=== PATIENT | male | born 1960 | race Caucasian/White ===

== ENCOUNTER → 2017-01-07 | Outpatient (CLI) | payer OTHER ==
[~2017-01-07] MED LIST: CEPH500C2 PO; CETI10TA84 PO; CIPR-255 PO; COEN1CAP28 PO; HYDR-5688 PO; IBUP-1050 PO; KETO2SHA TD; METR0.754 TD; SIMV20TA2 PO
[2017-01-07 17:46] LABS: HEMATOCRIT 49.4 % (42-52); MEAN CELL VOLUME 92.7 fL (80-100); MEAN CORPUSCULAR HEMOGLOBIN 31.7 pg (25-34); MEAN CORPUSCULAR HGB CONC 34.2 g/dl (32-36); MEAN PLATELET VOLUME 10.4 fL (7.4-10.4); PLATELET COUNT 189 K/uL (130-400); RED BLOOD COUNT 5.33 M/uL (4.7-6.1); WHITE BLOOD COUNT 7.06 K/uL (4.8-10.8)
[2017-01-07 18:09] LABS: BLOOD UREA NITROGEN 18 mg/dl (7-18); BUN/CREATININE RATIO 14.9 (10-20); CALCIUM 9.2 mg/dl (8.5-10.1); CARBON DIOXIDE 31 mmol/L (21-32); CHLORIDE 103 mmol/L (98-107); GLUCOSE 84 mg/dl (70-99); POTASSIUM 3.8 mmol/L (3.5-5.1); SODIUM 141 mmol/L (136-145)
[2017-01-07 18:13] LABS: PHOSPHORUS 2.9 mg/dl (2.5-4.9)
== END | disposition home or self-care (01) ==
LOC: C.LAB1850 16:53
PROVIDERS: ATTEND Dermatology
DX: N20.0 Calculus of kidney (principal); Z00.00 Encounter for general adult medical examination without abnormal findings; E55.9 Vitamin D deficiency, unspecified; R21 Rash and other nonspecific skin eruption

== ENCOUNTER → 2017-04-11 | Outpatient (CLI) | payer OTHER ==
--- NOTE | 2017-04-11 15:18 | DIAGNOSTIC IMAGING REPORT ---
KUB CLINICAL HISTORY: Nephrolithiasis. FINDINGS: An AP supine abdominal radiograph is compared to study dated 04/22/2016. A region of linear calcifications/stone fragments is again seen projecting over the lower pole of the left kidney an measures up to 2.6 cm. 2 additional nonobstructing left renal calculi are identified and measure up to 6 mm. No calcifications project over the right kidney or along the course of the ureters. Pelvic phleboliths are similar to previous. There is a nonobstructed abdominal bowel gas pattern noting moderate colonic fecal retention. The bony structures appear intact. IMPRESSION: Left-sided nephrolithiasis as above. This is similar to the 04/22/2016 examination. Electronically signed by: Jabari Thompson M.D. 04/11/2017 3:17 PM Dictated Date/Time: 04/11/2017 3:15 PM
== END | disposition home or self-care (01) ==
LOC: C.RAD 13:58
PROVIDERS: ATTEND Urology
DX: N20.0 Calculus of kidney (principal); Z11.59 Encounter for screening for other viral diseases

== ENCOUNTER → 2017-04-21 | Outpatient (CLI) | payer OTHER | END | disposition home or self-care (01) | LOC: C.LABBFT 12:46 | PROVIDERS: ATTEND Urology | DX: N40.1 Benign prostatic hyperplasia with lower urinary tract symptoms (principal) ==

== ENCOUNTER → 2017-07-25 | Outpatient (CLI) | payer OTHER ==
[2017-07-25 16:59] LABS: ALT/SGPT 23 U/L (12-78); AST/SGOT 28 U/L (15-37); BLOOD UREA NITROGEN 17 mg/dl (7-18); BUN/CREATININE RATIO 14.3 (10-20); CALCIUM 8.8 mg/dl (8.5-10.1); CARBON DIOXIDE 27 mmol/L (21-32); CHLORIDE 107 mmol/L (98-107); GLUCOSE 97 mg/dl (70-99); POTASSIUM 3.9 mmol/L (3.5-5.1); SODIUM 140 mmol/L (136-145)
[2017-07-25 17:02] LABS: ALKALINE PHOSPHATASE 91 U/L (45-117); CHOLESTEROL 194 mg/dl (0-200); CHOLESTEROL/HDL RATIO 3.3; HDL CHOLESTEROL 59 mg/dl; LDL CHOLESTEROL CALCULATED 113 mg/dl; TRIGLYCERIDES 112 mg/dl (0-150); VERY LOW DENSITY LIPOPROT CALC 22 mg/dl
== END | disposition home or self-care (01) ==
LOC: C.LABBFT 15:41
PROVIDERS: ATTEND Internal Medicine
DX: N20.0 Calculus of kidney (principal); E55.9 Vitamin D deficiency, unspecified

== ENCOUNTER → 2017-07-31 | Outpatient (CLI) | payer OTHER | END | disposition home or self-care (01) | LOC: C.LABSPEC 15:49 | PROVIDERS: ATTEND Physician Assistant | DX: L08.9 Local infection of the skin and subcutaneous tissue, unspecified (principal) ==

== ENCOUNTER → 2017-10-22 | Outpatient (CLI) | payer OTHER ==
--- NOTE | 2017-10-22 14:47 | DIAGNOSTIC IMAGING REPORT ---
KUB HISTORY: Follow-up exam in a patient with nephrolithiasis. R30.0 [id number] COMPARISON: KUB 04/11/2017. FINDINGS: The bowel gas pattern is non-obstructive. There is no organomegaly. Region of linear calcification and/or stone fragments again noted projecting over the inferior pole left kidney measuring up to 2.5 cm in length. 3 mm calculus projects over the superior pole left kidney. The previously noted 5 mm calculus which projected over the superior pole left kidney is no longer identified, nor is the 3 mm calculus within the region of the left interpolar kidney. No definite right nephrolithiasis or ureteral calculi. Probable phleboliths of the pelvis. No pneumoperitoneum or pneumatosis. No fracture. IMPRESSION: Decreased left-sided nephrolithiasis from comparison without right-sided nephrolithiasis or ureteral calculi identified. Electronically signed by: Gabriel De La Paz M.D. 10/22/2017 2:45 PM Dictated Date/Time: 10/22/2017 2:43 PM
== END | disposition home or self-care (01) ==
LOC: C.RAD 13:52
PROVIDERS: ATTEND Nurse Practitioner Adult Health
DX: R30.0 Dysuria (principal); N20.0 Calculus of kidney

== ENCOUNTER → 2017-12-04 | Outpatient (CLI) | payer OTHER | END | disposition home or self-care (01) | LOC: C.LAB 12:48 | DX: R21 Rash and other nonspecific skin eruption (principal) ==

== ENCOUNTER 2017-12-18 12:52 | Emergency (ER) | payer OTHER ==
[~2017-12-18] VITALS: Ht 172.7 cm; Wt 88.2 kg
[2017-12-18 12:59] VITALS: TEMP 36.8; Ht 172.7 cm; Wt 88.2 kg
[2017-12-18] MEDS ORDERED: KETOROLAC TROMETHAMINE 30 MG/ML VIAL IV STA (13:22)
[2017-12-18] MEDS ORDERED: SODIUM CHLORIDE 0.9% 1000ML 1,000 ML IV STA (13:22)
--- NOTE | 2017-12-18 13:28 | EMERGENCY ROOM VISIT NOTE ---
History Report prepared by Raman: Jasvir Goodrich Under the Supervision of: Dr. Wiley Rojas M.D. First contact with patient: 13:15 Chief Complaint: CHEST PAIN Stated Complaint: DULL PAIN IN UPPER R CHEST,CONGESTION UPPER R LUNG History of Present Illness The patient is a 57 year old male who presents to the Emergency Room with complaints of persistent right sided chest pain that began three months ago. The patient describes his chest pain as "dull" and states it is present currently. He also complains of respiratory congestion on his right side and pain in the right side of his throat. These symptoms also began a couple months ago "when the weather changed in ." He is not short of breath. He also denies any recent fevers, nausea, vomiting. The patient has not taken any medications for his symptoms. He denies any recent long travels, or history of blood clots. Source of History: patient Onset: 3 months ago Position: chest (right) Quality: dull Timing: other (persistent) Associated Symptoms: + sorethroat, No SOB, No nausea, No vomiting, No abdominal pain Review of Systems See HPI for pertinent positives and negatives. A total of ten systems were reviewed and were otherwise negative. Past Medical & Surgical Medical Problems: (1) Diverticulosis Colon (W/O Ment Of Hemorrhage) (2) Folliculitis (3) Hyperlipidemia (4) Kidney stone Surgical Problems: (1) Hx of tonsillectomy Family History Cancer Diabetes mellitus Heart disease Hypertension Kidney disease Kidney stones Social History Smoking Status: Never Smoker Alcohol Use: none Marital Status: single Housing Status: lives alone Occupation Status: unemployed Current/Historical Medications Scheduled Cholecalciferol (Vitamin D3), 1 TAB PO BID Fish Oil (Vantage-3), 1 CAP PO HS Ketoconazole (Topical) (Ketoconazole), 1 APPLN TD UD Metronidazole (Topical) (Metrocream), 1 APPLN TD HS Silver Sulfadiazine (Silver Sulfadiazine), 1 APPLN TOP HS Simvastatin (Zocor), 20 MG PO QPM Allergies Coded Allergies: POLLEN (Verified Allergy, Intermediate, sinusitis, 12/18/17) Physical Exam Vital Signs Date Time Temp Pulse Resp B/P (MAP) Pulse Ox O2 Delivery O2 Flow Rate FiO2 12/18/17 15:15 67 18 141/91 94 12/18/17 13:51 70 12/18/17 13:48 71 16 156/99 96 12/18/17 13:45 94 Room Air 12/18/17 13:45 94 Room Air 12/18/17 12:59 36.8 90 16 153/105 93 Room Air Physical Exam GENERAL: Awake, alert, anxious-appearing, in no distress HENT: Normocephalic, atraumatic. Oropharynx unremarkable. EYES: Normal conjunctiva. Sclera non-icteric. NECK: Supple. No nuchal rigidity. FROM. No JVD. RESPIRATORY: Clear to auscultation. CARDIAC: Regular rate, normal rhythm. Extremities warm and well perfused. Pulses equal. ABDOMEN: Soft, non-distended. No tenderness to palpation. No rebound or guarding. No masses. RECTAL: Deferred. MUSCULOSKELETAL: Chest examination reveals no tenderness. The back is symmetrical on inspection without obvious abnormality. There is no CVA tenderness to palpation. No joint edema. LOWER EXTREMITIES: Calves are equal size bilaterally and non-tender. No edema. No discoloration. NEURO: Normal sensorium. No sensory or motor deficits noted. SKIN: No rash or jaundice noted. Medical Decision & Procedures ER Provider Diagnostic Interpretation: Radiology results as stated below per my review and radiologist interpretation: CHEST ONE VIEW PORTABLE HISTORY: Atypical CHEST PAIN COMPARISON: Chest 08/18/2015. FINDINGS: The heart remains mildly enlarged. The lungs are clear. No pleural effusions. No pneumothorax. IMPRESSION: No significant change compared to the prior study. No acute process. Electronically signed by: Giorgio Mcleod M.D. 12/18/2017 1:44 PM Dictated Date/Time: 12/18/2017 1:41 PM Laboratory Results 12/18/17 13:39 Red Blood Count 5.27, Mean Corpuscular Volume 94.3, Mean Corpuscular Hemoglobin 32.6, Mean Corpuscular Hemoglobin Concent 34.6, Mean Platelet Volume 10.3, Neutrophils (%) (Auto) 66.5, Lymphocytes (%) (Auto) 21.8, Monocytes (%) (Auto) 9.3, Eosinophils (%) (Auto) 2.1, Basophils (%) (Auto) 0.3, Neutrophils # (Auto) 4.22, Lymphocytes # (Auto) 1.38, Monocytes # (Auto) 0.59, Eosinophils # (Auto) 0.13, Basophils # (Auto) 0.02 12/18/17 13:39 Test 12/18/17 13:39 White Blood Count 6.34 K/uL (4.8-10.8) Red Blood Count 5.27 M/uL (4.7-6.1) Hemoglobin 17.2 g/dL (14.0-18.0) Hematocrit 49.7 % (42-52) Mean Corpuscular Volume 94.3 fL (80-100) Mean Corpuscular Hemoglobin 32.6 pg (25-34) Mean Corpuscular Hemoglobin Concent 34.6 g/dl (32-36) Platelet Count 172 K/uL (130-400) Mean Platelet Volume 10.3 fL (7.4-10.4) Neutrophils (%) (Auto) 66.5 % Lymphocytes (%) (Auto) 21.8 % Monocytes (%) (Auto) 9.3 % Eosinophils (%) (Auto) 2.1 % Basophils (%) (Auto) 0.3 % Neutrophils # (Auto) 4.22 K/uL (1.4-6.5) Lymphocytes # (Auto) 1.38 K/uL (1.2-3.4) Monocytes # (Auto) 0.59 K/uL (0.11-0.59) Eosinophils # (Auto) 0.13 K/uL (0-0.5) Basophils # (Auto) 0.02 K/uL (0-0.2) RDW Standard Deviation 42.7 fL (36.4-46.3) RDW Coefficient of Variation 12.5 % (11.5-14.5) Immature Granulocyte % (Auto) 0.0 % Immature Granulocyte # (Auto) 0.00 K/uL (0.00-0.02) D-Dimer 210 ug/L FEU (0-500) Anion Gap 5.0 mmol/L (3-11) Est Creatinine Clear Calc Drug Dose 71.2 ml/min Estimated GFR () 75.3 Estimated GFR (Non- 64.9 BUN/Creatinine Ratio 15.7 (10-20) Calcium Level 9.1 mg/dl (8.5-10.1) Magnesium Level 2.2 mg/dl (1.8-2.4) Total Bilirubin 0.7 mg/dl (0.2-1) Direct Bilirubin 0.1 mg/dl (0-0.2) Aspartate Amino Transf (AST/SGOT) 22 U/L (15-37) Alanine Aminotransferase (ALT/SGPT) 22 U/L (12-78) Alkaline Phosphatase 89 U/L (45-117) Troponin I < 0.015 ng/ml (0-0.045) Total Protein 7.9 gm/dl (6.4-8.2) Albumin 4.0 gm/dl (3.4-5.0) Lipase 189 U/L (73-393) Laboratory results reviewed by me Medications Administered Medications (Trade) Dose Ordered Sig/Dalia Route Start Time Stop Time Status Last Admin Dose Admin Sodium Chloride 1,000 ml @ 999 mls/hr Q1H1M STAT IV 12/18/17 13:22 12/18/17 14:22 DC 12/18/17 13:22 999 MLS/HR Ketorolac Tromethamine (Toradol Inj) 15 mg NOW STAT IV 12/18/17 13:22 12/18/17 13:29 DC 12/18/17 13:48 15 MG Albuterol (Ventolin Hfa Inhaler) 2 puffs NOW STAT INH 12/18/17 14:44 12/18/17 14:46 DC 12/18/17 15:15 2 PUFFS ECG Indication: chest pain Rate (beats per minute): 81 Rhythm: normal sinus Findings: no acute ischemic change, other (Normal [place]) Change: Patient's electrocardiogram interpreted by me. ED Course 1322: The patient was evaluated in room C3. A complete history and physical exam was performed. 1322: Ordered Toradol 15 mg IV, Sodium Chloride 1000 mL @ 999 mL/hr IV. 1444: Ordered Albuterol 2 puffs. INH. 1450: I reevaluated the patient. Discussed results and discharge instructions: He verbalized understanding and agreement. The patient is ready for discharge. Medical Decision I reviewed the patient's past medical history, medications, and the nursing notes as described above. Differential diagnosis: Etiologies such as cardiac ischemia, aortic dissection, pulmonary embolism, pneumonia, pneumothorax, musculoskeletal, infections, pericarditis, myocarditis , esophageal rupture, gastrointestinal, as well as others were entertained. The patient is a 57 y/o gentleman who presents to the emergency department with right CP and cough, congestion x 3 months per HPI. On arrival, the patient is relatively well-appearing, in NAD, AFVSS. On exam with reproducible ttp right CW. EKG unremarkable and trop negative in the setting of 3 months of constant sx. Heart score 1, low risk, ACS not likely. CXR negative. WBC wnl. D-dimer negative, PE not likely. Given reproducible pain in the setting of patient's cough, CP most likely costochondritis. Given MDI for anti-tussive effect. Plan for pcp f/u. Findings and plan for follow-up reviewed with patient. Patient agreeable and d/c'd per discharge instructions. Medication Reconcilliation Current Medication List: was personally reviewed by me Blood Pressure Screening Patient's blood pressure: Elevated blood pressure Impression Primary Impression: Cough Additional Impression: Chest wall pain Scribe Attestation The scribe's documentation has been prepared under my direction and personally reviewed by me in its entirety. I confirm that the note above accurately reflects all work, treatment, procedures, and medical decision making performed by me. Departure Information Dispostion Home / Self-Care Referrals Andres Nowak M.D. (PCP) Patient Instructions ED Chest Pain Costochondritis, ED Cough Chronic Cause Unkn, My [facility] Additional Instructions Please follow up with your primary care physician in the next 1-3 days for re- evaluation. The cause of your symptoms is unclear at this time but you may have a viral upper respiratory infection causing your cough and subsequent chest wall muscle inflammation. Otherwise, your exam, EKG, chest xray, and lab results did not show signs of an emergent condition at this time. Acetaminophen or ibuprofen for pain and fevers as needed. Albuterol 2 puffs every 4 hours as needed for cough. Drink plenty of fluids to ensure hydration. Return to the emergency department for worsening symptoms as described in the accompanying instructions. Problem Qualifiers
[2017-12-18 13:45] VITALS: O2SAT 94
--- NOTE | 2017-12-18 13:45 | DIAGNOSTIC IMAGING REPORT ---
CHEST ONE VIEW PORTABLE HISTORY: Atypical CHEST PAIN COMPARISON: Chest 08/18/2015. FINDINGS: The heart remains mildly enlarged. The lungs are clear. No pleural effusions. No pneumothorax. IMPRESSION: No significant change compared to the prior study. No acute process. Electronically signed by: Giorgio Mcleod M.D. 12/18/2017 1:44 PM Dictated Date/Time: 12/18/2017 1:41 PM
[2017-12-18 13:54] LABS: BASO % 0.3 %; BASO ABS # 0.02 K/uL (0-0.2); EOS % 2.1 %; EOS ABS # 0.13 K/uL (0-0.5); HEMATOCRIT 49.7 % (42-52); HEMOGLOBIN 17.2 g/dL (14.0-18.0); LYMPH % 21.8 %; LYMPH ABS # 1.38 K/uL (1.2-3.4); MEAN CELL VOLUME 94.3 fL (80-100); MEAN CORPUSCULAR HEMOGLOBIN 32.6 pg (25-34); MEAN CORPUSCULAR HGB CONC 34.6 g/dl (32-36); MEAN PLATELET VOLUME 10.3 fL (7.4-10.4); MONO % 9.3 %; MONO ABS # 0.59 K/uL (0.11-0.59); NEUT % 66.5 %; NEUT ABS # 4.22 K/uL (1.4-6.5); PLATELET COUNT 172 K/uL (130-400); RED CELL DISTRIBUTION WIDTH CV 12.5 % (11.5-14.5); RED CELL DISTRIBUTION WIDTH SD 42.7 fL (36.4-46.3); WHITE BLOOD COUNT 6.34 K/uL (4.8-10.8)
[2017-12-18] MEDS ORDERED: OMEG10007 PO (14:06)
[2017-12-18] MEDS ORDERED: CHOL1000 PO (14:06)
[2017-12-18] MEDS ORDERED: SILV1CRE99 TOP (14:06)
[2017-12-18 14:09] LABS: BLOOD UREA NITROGEN 19 mg/dl (7-18); CALCIUM 9.1 mg/dl (8.5-10.1); CARBON DIOXIDE 30 mmol/L (21-32); CREATININE 1.22 mg/dl (0.60-1.40); GLUCOSE 95 mg/dl (70-99); LIPASE 189 U/L (73-393); POTASSIUM 4.2 mmol/L (3.5-5.1); SODIUM 138 mmol/L (136-145)
[2017-12-18 14:14] LABS: ALKALINE PHOSPHATASE 89 U/L (45-117); ALT/SGPT 22 U/L (12-78); AST/SGOT 22 U/L (15-37); TOTAL PROTEIN 7.9 gm/dl (6.4-8.2)
[2017-12-18] MEDS ORDERED: ALBUTEROL HFA 8 GM INHALER INH STA (14:44)
[2017-12-18 15:15] VITALS: BP 141/91; PULSE 67; O2SAT 94
== END 2017-12-18 15:17 | disposition home or self-care (01) ==
LOC: C.EDB 12:53 → C.EDC 15:17
DX: R05 Cough (principal); R07.89 Other chest pain; E78.5 Hyperlipidemia, unspecified; Z87.442 Personal history of urinary calculi; Z90.89 Acquired absence of other organs; Z83.3 Family history of diabetes mellitus; Z82.49 Family history of ischemic heart disease and other diseases of the circulatory system; Z84.1 Family history of disorders of kidney and ureter; Z79.899 Other long term (current) drug therapy

== ENCOUNTER → 2018-03-12 | Outpatient (CLI) | payer OTHER ==
[~2018-03-12] MED LIST changes: -CEPH500C2 PO; -CETI10TA84 PO; +CHOL1000 PO; -CIPR-255 PO; -COEN1CAP28 PO; -HYDR-5688 PO; -IBUP-1050 PO; +OMEG10007 PO; +SILV1CRE99 TOP
[2018-03-12 14:45] LABS: BASO % 0.2 %; BASO ABS # 0.01 K/uL (0-0.2); EOS % 1.3 %; EOS ABS # 0.08 K/uL (0-0.5); HEMATOCRIT 49.5 % (42-52); HEMOGLOBIN 16.9 g/dL (14.0-18.0); IG# 0.02 K/uL (0.00-0.02); LYMPH % 24.7 %; MEAN CELL VOLUME 93.6 fL (80-100); MEAN CORPUSCULAR HEMOGLOBIN 31.9 pg (25-34); MEAN CORPUSCULAR HGB CONC 34.1 g/dl (32-36); MEAN PLATELET VOLUME 9.8 fL (7.4-10.4); MONO % 7.6 %; MONO ABS # 0.46 K/uL (0.11-0.59); NEUT % 65.9 %; NEUT ABS # 4.01 K/uL (1.4-6.5); PLATELET COUNT 186 K/uL (130-400); RED CELL DISTRIBUTION WIDTH CV 12.4 % (11.5-14.5); WHITE BLOOD COUNT 6.08 K/uL (4.8-10.8)
[2018-03-12 15:05] LABS: ALBUMIN 3.9 gm/dl (3.4-5.0); ALT/SGPT 21 U/L (12-78); AST/SGOT 24 U/L (15-37); BLOOD UREA NITROGEN 16 mg/dl (7-18); CALCIUM 8.8 mg/dl (8.5-10.1); CARBON DIOXIDE 29 mmol/L (21-32); CREATININE 1.25 mg/dl (0.60-1.40); GLUCOSE 90 mg/dl (70-99); POTASSIUM 3.9 mmol/L (3.5-5.1); SODIUM 140 mmol/L (136-145)
[2018-03-12 15:08] LABS: ALKALINE PHOSPHATASE 96 U/L (45-117); TOTAL PROTEIN 7.6 gm/dl (6.4-8.2)
== END | disposition home or self-care (01) ==
LOC: C.LAB 13:53
PROVIDERS: ATTEND Internal Medicine
DX: E55.9 Vitamin D deficiency, unspecified (principal); E78.5 Hyperlipidemia, unspecified; N40.1 Benign prostatic hyperplasia with lower urinary tract symptoms; N26.1 Atrophy of kidney (terminal); R21 Rash and other nonspecific skin eruption

== ENCOUNTER → 2018-03-27 | Outpatient (CLI) | payer OTHER | END | disposition home or self-care (01) | LOC: C.LABBFT 13:34 | PROVIDERS: ATTEND Internal Medicine | DX: E78.5 Hyperlipidemia, unspecified (principal); N40.1 Benign prostatic hyperplasia with lower urinary tract symptoms; N26.1 Atrophy of kidney (terminal); R21 Rash and other nonspecific skin eruption ==